=== PATIENT | male | born 1950 | race Caucasian/White ===

== ENCOUNTER 2016-10-17 18:39 | Observation (INO) | payer MEDICARE, BC ==
[2016-10-17 19:59] LABS: Hematocrit 40 % (42-52); Hemoglobin 13.4 g/dl (14.0-18.0); Mean Corpuscular HGB Conc 33 g/dl (31-36); Mean Corpuscular Hemoglobin 29 pg (27-31); Mean Corpuscular Volume 86 fL (80-94); Mean Platelet Volume 8 um3 (7.4-10.4); Red Blood Count 4.68 10^6/ul (4.0-5.4); Red Cell Distribution Width 15 % (10.5-15); White Blood Count 8.5 10^3/ul (3.5-10.8)
[2016-10-17 20:15] LABS: BUN/Creatinine Ratio 20.9 (8-20); Calcium 9.9 mg/dL (8.6-10.3); EGFR African American 81.6 (>60); EGFR Non-African American 63.4 (>60); Magnesium 1.7 mg/dL (1.9-2.7); Total Bilirubin 0.4 mg/dL (0.2-1.0); Troponin I 0.01 ng/mL (<0.04)
[2016-10-17 20:42] LABS: TSH (Thyroid Stimulating Horm) 0.89 mcIU/mL (0.34-5.60)
[2016-10-17] MEDS ORDERED: Magnesium Sulfate 2 GM IV* 2 GM/50 ML BAG IVPB ONE (21:33)
[2016-10-18] MEDS ORDERED: Heparin VIAL(*) 5000 UNITS/ML VIAL (FIVE THOUSAND) SUBCUT SCH (06:00)
--- NOTE | 2016-10-18 07:44 | HP ---
HISTORY AND PHYSICAL: DATE OF ADMISSION: 10/17/16 CHIEF COMPLAINT: "Feeling buzzy." HISTORY OF PRESENT ILLNESS: The patient is a 66-year-old gentleman who said he felt like his heart was slowing up recently. He had a pacemaker placed just a short time ago [facility] in [place] as he was having symptomatic bradycardia. He said, however, this weekend, he started having a feeling like he was feeling a little spacey and a little buzzy or tingly. He did not feel exactly he was going to passed out, but did feel strange. Then he would feel fine again. In the ED, this happened a couple of times and it appeared to be when his heart was slowing down then his pacemaker would kick in. He did not have any chest pain. He did not have any shortness of breath. PAST MEDICAL HISTORY: He has a past medical history significant for primary biliary cirrhosis, hyperlipidemia, and pseudogout. PAST SURGICAL HISTORY: Right shoulder surgery, right knee arthroscopy, and bilateral carpal tunnel release. CURRENT MEDICATIONS: As follows: 1. Welchol 1 tablet daily. 2. Ursodiol 500 mg twice daily. 3. "Miscellaneous natural products" 1 tablet daily. 4. Lactobacillus 1 capsule daily. 5. Glucosamine/chondroitin 1 capsule daily. 6. Folate/vitamin B12 1 tablet daily. 7. Vitamin B12 500 mcg daily. 8. Celexa 40 mg daily. 9. Calcium and magnesium 1 tablet daily. 10. Ascorbic acid 500 mg daily. 11. Amphetamine mixed salts (Adderall) 5 mg daily. FAMILY HISTORY: Mother of Alzheimer's. Father of old age. SOCIAL HISTORY: Quit tobacco 35 years ago. Quit marijuana 4 months ago. Social alcohol. No recreational drug use. 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 His , Myron Fowler, is his health care proxy. He has 2 children. REVIEW OF SYSTEMS: A 14-point review of systems is completed with the patient. All pertinent positives and negatives are in the history of present illness, otherwise it is negative. PHYSICAL EXAMINATION GENERAL: A pleasant gentleman, lying in bed, in no acute distress. VITAL SIGNS: Blood pressure 125/75, pulse ox 95%, respiratory rate 13 breaths per minute, heart rate 79 beats per minute, and temperature 97.9 degrees. HEENT: Normocephalic and atraumatic. Pupils are equal, round, and reactive to light. Moist mucous membranes. NECK: Supple. No JVD, bruits, palpable thyroid, or lymphadenopathy. CHEST: Clear to auscultation and percussion bilaterally. CARDIOVASCULAR: S1, S2 appreciated. Regular rate and rhythm. ABDOMEN: Positive bowel sounds in all 4 quadrants. Soft, nontender, and nondistended. EXTREMITIES: No cyanosis, clubbing, or edema; +2 peripheral pulses bilaterally. NEUROLOGIC: Alert and oriented x3. Moves all extremities. SKIN: No rashes or abnormalities. DIAGNOSTIC STUDIES/LABORATORY DATA: White count 8.5, hemoglobin 13.4, hematocrit 40, and platelets 370. Sodium 135, potassium 4.0, chloride 103, CO2 27, BUN 24, creatinine 1.15, and glucose 100. EKG shows normal sinus rhythm at 76 beats per minute, normal axis, and no acute ST- T wave changes. ASSESSMENT AND PLAN: 1. Symptomatic bradycardia: [employer] is coming tomorrow to interrogate his pacemaker. I think he may needed to have it set at a somewhat higher rate that he gets symptomatic even as he gets close to 60. Cardiology maybe necessary to consult. 2. FEN: Regular diet. 3. DVT prophylaxis: Heparin subcu. 4. Code status: The patient is a full code. TIME SPENT: Over 75 minutes was spent on this H and P; more than 40 minutes of which was spent in direct [id number] contact with the patient, evaluation, physical exam, counseling, and coordination of care. CC: Bacilio Valles MD* [id number]/CPS #: [id number] MTDD
[2016-10-18] MEDS ORDERED: [UNRECOGNIZED DRUG - OTHER] PO SCH (09:00)
[2016-10-18] MEDS ORDERED: Lactobacillus Acidophilu (GG)* 1 CAP CAP PO SCH (09:00)
[2016-10-18] MEDS ORDERED: Colesevelam(NF) 625 MG TAB PO SCH (09:00)
[2016-10-18] MEDS ORDERED: Citalopram TAB* 40 MG PO SCH (09:00)
[2016-10-18] MEDS ORDERED: CALCIUM MAGNESIUM ZINC PO SCH (09:00)
[2016-10-18] MEDS ORDERED: Amphetamine MIXED SALT TAB* 10 MG TAB PO SCH (09:00)
[2016-10-18] MEDS ORDERED: CELEXA 40 MG PO SCH (09:00)
[2016-10-18] MEDS ORDERED: Cyanocobalamin TAB* 500 MCG PO SCH (09:00)
[2016-10-18] MEDS ORDERED: [UNRECOGNIZED DRUG - OTHER] PO SCH (09:00)
[2016-10-18] MEDS ORDERED: GLUCOSAMINE CHONDROITIN PO SCH (09:00)
[2016-10-18] MEDS ORDERED: [UNRECOGNIZED DRUG - OTHER] PO SCH (09:00)
[2016-10-18] MEDS ORDERED: Ascorbic Acid TAB* 500 MG PO SCH (09:00)
[2016-10-18 12:17] VITALS: BP 124/76
--- NOTE | 2016-10-18 13:00 | DCNOTE ---
Subjective Date of Service: 10/18/16 Interval History: pt denies any other symptoms. Feels good. No SOB or CP. Ambulated around unit with no complaints and would like to go home. Objective Active Medications: Amphetamine/Dextroamphetamine (Adderall Tab*) 5 mg PO DAILY [facility] Last Admin: 10/18/16 09:16 Dose: Not Given Ascorbic Acid (Vitamin C Tab*) 500 mg PO DAILY [facility] Last Admin: 10/18/16 09:16 Dose: 500 mg Citalopram Hydrobromide (Celexa Tab*) 40 mg PO DAILY [facility] Last Admin: 10/18/16 09:16 Dose: 40 mg Colesevelam HCl (Welchol(Nf)) 625 mg PO DAILY [facility] Last Admin: 10/18/16 08:20 Dose: Not Given Cyanocobalamin (Vitamin B12 Tab*) 500 mcg PO DAILY [facility] Last Admin: 10/18/16 09:16 Dose: 500 mcg Heparin Sodium (Porcine) (Heparin Vial(*)) 5,000 units SUBCUT Q8HR [facility] Last Admin: 10/18/16 05:45 Dose: Not Given Lactobacillus Rhamnosus (Culturelle*) 1 cap PO DAILY [facility] Last Admin: 10/18/16 09:16 Dose: 1 cap Ursodiol 500 Mg 500 mg PO BID [facility] Last Admin: 10/18/16 08:21 Dose: Not Given Vital Signs 10/18/16 10/18/16 10/18/16 00:53 01:00 02:00 Temperature Pulse Rate 74 73 70 Respiratory 17 17 15 Rate Blood Pressure 100/66 108/64 102/65 (mmHg) O2 Sat by Pulse 95 94 95 Oximetry 10/18/16 10/18/16 10/18/16 03:20 03:39 07:39 Temperature 97.7 F 97.7 F 98.1 F Pulse Rate 71 71 74 Respiratory 16 16 16 Rate Blood Pressure 108/75 108/75 113/63 (mmHg) O2 Sat by Pulse 98 99 96 Oximetry 10/18/16 10/18/16 10/18/16 11:25 11:45 11:50 Temperature 98.0 F Pulse Rate 80 72 74 Respiratory 16 Rate Blood Pressure 111/65 112/67 127/73 (mmHg) O2 Sat by Pulse 97 97 Oximetry 10/18/16 11:55 Temperature Pulse Rate 84 Respiratory Rate Blood Pressure 124/76 (mmHg) O2 Sat by Pulse Oximetry Oxygen Devices in Use Now: None Appearance: healthy appearing 66 yo male in NAD. A+O x3 Eyes: No Scleral Icterus, PERRLA Ears/Nose/Mouth/Throat: NL Teeth, Lips, Gums, Clear Oropharnyx, Mucous Membranes Moist Neck: NL Appearance and Movements; NL JVP Respiratory: Symmetrical Chest Expansion and Respiratory Effort, Clear to Auscultation Cardiovascular: NL Sounds; No Murmurs; No JVD, RRR, No Edema Abdominal: NL Sounds; No Tenderness; No Distention Lymphatic: No Cervical Adenopathy Extremities: No Edema, No Clubbing, Cyanosis Skin: No Rash or Ulcers, No Nodules or Sclerosis Neurological: Alert and Oriented x 3, NL Sensation, NL Gait, NL Muscle Strength and Tone Lines/Tubes/Other Access: Clean, Dry and Intact Peripheral IV Nutrition: Taking PO's Result Diagrams: 10/17/16 19:47 10/17/16 19:47 Assess/Plan/Problems-Billing Assessment: The 66 yo male with a PMH of pacer placed in Jun 2016, biliary cirrhosis and HLD who presented with c/o of presyncope - Patient Problems (1) Pre-syncope Comment: - no further symptoms, unclear etiology. - pacer interrogated by [employer] rep Jose J. Pacer is functioning appropriately with no noted arrythmias, pt uses pacer < 1% of the time. - spoke with Dr. Pizarro who agrees the pt can go home. - Orthostatic negative - f/u with Dr. Hines at previously schedule appt next week. (2) Hypomagnesemia Comment: replaced on admission; encourage magnesium supplement (3) DVT prophylaxis Comment: HSQ Status and Disposition: OBV. Plan for DC to home
[2016-10-18 13:23] LABS: Urine Bilirubin Negative (Negative); Urine Glucose Negative (Negative); Urine Nitrite Negative (Negative)
--- NOTE | 2016-10-19 01:11 | DS ---
DISCHARGE SUMMARY: DATE OF ADMISSION: 10/17/16 DATE OF DISCHARGE: 10/18/16 PROVIDER: Nico Pool NP ATTENDING PHYSICIAN: Naima Clayton MD *(report dictated by Nico Pool NP) PRIMARY CARE PROVIDER: Bacilio Valles MD MANAGER FLORAL: Kirti Hines MD PRIMARY DIAGNOSES: 1. Presyncope, unclear etiology. 2. Hypomagnesemia. SECONDARY DIAGNOSES: 1. Primary biliary cirrhosis. 2. Hyperlipidemia. 3. Pseudogout. DISCHARGE MEDICATIONS: 1. Welchol 1 tab p.o. daily. 2. Ursodiol 500 mg p.o. b.i.d. 3. Lactobacillus 1 cap p.o. daily. 4. Glucosamine/chondroitin 500/400 1 cap p.o. daily. 5. Multivitamin 1 tablet p.o. daily. 6. Vitamin B12 500 mcg p.o. daily. 7. Celexa 40 mg p.o. daily. 8. Vitamin C 500 mg p.o. daily. 9. ADDERALL 5 mg p.o. daily (the patient was strongly encouraged to discontinue this medication and discuss with primary care provider). 10. Magnesium oxide 400 mg p.o. daily. HISTORY OF PRESENT ILLNESS AND HOSPITAL COURSE: Please see history and physical by Dr. Pedraza for full admission details, but in summary, this is a 66- year-old male who presented to the emergency department on 10/17/16 with "feeling buzzy." The patient reported he had a pacemaker placed in June at [facility] in [place] secondary to symptomatic bradycardia and syncope. He reports that since his pacemaker was placed, he has not had any symptoms of presyncope or syncope and has been feeling in good health. Yesterday in the morning, he reports that his initial concern was that he bent down and when he went to stand up, he felt lightheaded. That resolved and later on the day, he had 2 episodes where he felt "fuzzy in the head" and with a sensation of feeling like he may pass out and overall, he just felt strange. When he came to the emergency department for further evaluation as he thought it was very similar symptoms to what he was experiencing prior to his pacemaker placement. The patient was admitted to the hospitalist service and monitored on telemetry with a plan for pacemaker interrogation this morning. [employer] pacer community engagement representative interrogated the patient's pacemaker, which showed no arrhythmias as well as it is appropriately functioning and the wires are in place as well as noted that the patient's pacer is only in use less than 1% of the time. On our telemetry monitoring, there were no noted arrhythmias, but his heart rate stayed consistently in the 70s and 80s. Troponin was negative. No EKG changes. The patient denies any chest pain, shortness of breath, or any further symptoms throughout his hospitalization. I suspect this is possibly secondary to he took ADDERALL that morning which he does not do every day and states that he actually takes it quite infrequently, but he had a busy stressful day and took 5 mg of ADDERALL that morning. As well as he believes that he possibly did not drink enough water that day and so therefore, I think it is most likely a combination of these 2 things that probably brought on these symptoms. The patient is stable for discharge home. I did discuss the case with Dr. Pizarro, reliability technicians, who agrees that if the pacer had a normal interrogation, which it does, the patient can be discharged home and followed up with Dr. Hines as an outpatient. The patient was noted to have a magnesium of 1.7. He is given replacement on admission. The patient does report that he is supposed to take a magnesium supplement, but stopped doing so approximately a month ago. He was encouraged to start taking supplementation again and have his magnesium level checked within the next week or two. DISCHARGE PLAN: 1. Stable for discharge home. 2. Follow up with Dr. Valles within 1 week. 3. Follow up with Dr. Hines at previously scheduled appointment in approximately 10 days. 4. The patient was instructed to return to the emergency department with any further worsening or concerning symptoms as well as he was strongly encouraged not to take the ADDERALL and encouraged that he increase his fluid intake. TIME SPENT: Approximately 60 minutes was spent in the discharge. NICO POOL NP CC: Dr. Valles; Dr. Hines* [id number]/[facility] #: [id number] [facility]
--- NOTE | 2016-10-23 09:14 | ED ---
Robert Mendoza Karl, scribed for Yee Benjamin MD on 10/17/16 at 2017 . Palpitations / Dysrhythmia - HPI Summary HPI Summary: 66 y/o male presents to the ED c/o heart palpitations. Pt reported that he has been having intermittent episodes of feeling like his HR was either fast or abnormally slow. Pt has had 3 episodes today with the most recent being shortly before coming to the ED. Pt denied CP and SOB. Pt has a pacemaker because of symptomatic bradycardia. - History of Current Complaint Chief Complaint: EDDysrhythmPalp Time Seen by Provider: 10/17/16 19:14 Hx Obtained From: Patient Onset/Duration: Gradual Onset, Lasting Hours, Still Present Timing: Intermittent Episodes Lasting: Severity Initially: Mild Severity Currently: Mild Character: Slow Aggravating: Nothing Alleviating: Nothing - Allergy/Home Medications Allergies/Adverse Reactions: Allergies Allergy/AdvReac Type Severity Reaction Status Date / Time bees Allergy Severe anaphylaxis Uncoded 06/08/16 16:15 Home Medications: Home Medications Amphetamine MIXED SALTS TAB* [Adderall TAB*] 5 mg PO DAILY 10/17/16 [History Confirmed 10/17/16] Ascorbic Acid TAB* [Vitamin C TAB*] 500 mg PO DAILY 10/17/16 [History Confirmed 10/17/16] Quxrghs-Cyunstlyr-Ybzq [Calcium & Magnesium + Zin 334-134-5 mg] 1 tab PO DAILY 10/17/16 [History Confirmed 10/17/16] Cyanocobalamin TAB* [Vitamin B12 TAB*] 500 mcg PO DAILY 10/17/16 [History Confirmed 10/17/16] Folate-Vitamin G27-Hgxrmwqbz F [Intrinsi B12/Folate 800-500-20 Mcg-Mcg-mg] 1 tab PO DAILY 10/17/16 [History Confirmed 10/17/16] Glucosamine-Chondroitin [Glucosamine & Chondroitin 500-400 mg] 1 cap PO DAILY [History Confirmed 10/17/16] Misc Natural Products [Curcumax Pro] 1 tab PO DAILY 10/17/16 [History Confirmed 10/17/16] PMH/Surg Hx/FS Hx/Imm Hx Endocrine/Hematology History: Denies: Hx Diabetes, Hx Systemic Lupus Erythematosus, Hx Thyroid Disease Cardiovascular History: Denies: Hx Congestive Heart Failure, Hx Hypertension, Hx Pacemaker/ICD Respiratory History: Denies: Hx Asthma, Hx Chronic Obstructive Pulmonary Disease (COPD) GI History: Denies: Hx Ulcer History: Denies: Hx Dialysis, Hx Renal Disease - 1 kidney Musculoskeletal History: Denies: Hx Rheumatoid Arthritis, Hx Osteoporosis Sensory History: Denies: Hx Hearing Aid Psychiatric History: Denies: Hx Panic Disorder - Cancer History Hx Chemotherapy: No - Surgical History Surgery Procedure, Year, and Place: rt shoulder. lt knee. bilat wrist for carpal tunnel. kidney removal Infectious Disease History: No Infectious Disease History: Denies: Hx Hepatitis, Hx Human Immunodeficiency Virus (HIV), Traveled Outside the [place] in Last 30 Days - Family History Known Family History: Positive: Other - gout Negative: Hypertension - Social History Alcohol Use: Weekly Alcohol Amount: 4-5 cocktails/week Substance Use Type: Reports: Marijuana - has stopped Substance Use Comment - Amount & Last Used: weekly Smoking Status (MU): Former Smoker - quit 30 years ago Have You Smoked in the Last Year: No Review of Systems Constitutional: Negative Eyes: Negative ENT: Negative Positive: Palpitations - percieved slow HR Respiratory: Negative Gastrointestinal: Negative Genitourinary: Negative Musculoskeletal: Negative Skin: Negative Neurological: Negative Psychological: Normal All Other Systems Reviewed And Are Negative: Yes Physical Exam Triage Information Reviewed: Yes Vital Signs On Initial Exam: Initial Vitals Temp Pulse Resp BP Pulse Ox 97.9 F 86 20 112/72 98 10/17/16 18:42 10/17/16 18:42 10/17/16 18:42 10/17/16 18:42 10/17/16 18:42 Vital Signs Reviewed: Yes Appearance: Positive: Well-Appearing, No Pain Distress Skin: Positive: Warm, Skin Color Reflects Adequate Perfusion, Dry Head/Face: Positive: Normal Head/Face Inspection Eyes: Positive: EOMI, ANDRAE ENT: Positive: Pharynx normal, TMs normal Neck: Positive: Supple, Nontender Respiratory/Lung Sounds: Positive: Clear to Auscultation, Breath Sounds Present. Negative: Rales, Rhonchi, Wheezes Cardiovascular: Positive: RRR. Negative: Murmur, Rub Abdomen Description: Positive: Nontender, Soft. Negative: Distended, Guarding Bowel Sounds: Positive: Present Musculoskeletal: Positive: Strength/ROM Intact. Negative: Edema Left, Edema Right Neurological: Positive: Sensory/Motor Intact, Alert, Oriented to Person Place, Time, CN Intact II-III Psychiatric: Positive: Affect/Mood Appropriate Diagnostics - Vital Signs Vital Signs Temp Pulse Resp BP Pulse Ox 10/17/16 18:42 97.9 F 86 20 112/72 98 - Laboratory Lab Results: Lab Results 10/17/16 10/17/16 10/17/16 Range/Units 19:47 19:47 19:47 WBC 8.5 (3.5-10.8) 10^3/ul RBC 4.68 (4.0-5.4) 10^6/ul Hgb 13.4 L (14.0-18.0) g/dl Hct 40 L (42-52) % MCV 86 (80-94) fL MCH 29 (27-31) pg MCHC 33 (31-36) g/dl RDW 15 (10.5-15) % Plt Count 370 (150-450) 10^3/ul MPV 8 (7.4-10.4) um3 Neut % (Auto) 74.6 (38-83) % Lymph % (Auto) 18.1 L (25-47) % [place] % (Auto) 6.1 (1-9) % Eos % (Auto) 0.3 (0-6) % Baso % (Auto) 0.9 (0-2) % Absolute Neuts (auto) 6.3 (1.5-7.7) 10^3/ul Absolute Lymphs (auto) 1.5 (1.0-4.8) 10^3/ul Absolute Monos (auto) 0.5 (0-0.8) 10^3/ul Absolute Eos (auto) 0 (0-0.6) 10^3/ul Absolute Basos (auto) 0.1 (0-0.2) 10^3/ul Absolute Nucleated RBC 0 10^3/ul Nucleated RBC % 0 Sodium 135 (133-145) mmol/L Potassium 4.0 (3.5-5.0) mmol/L Chloride 103 (101-111) mmol/L Carbon Dioxide 27 (22-32) mmol/L Anion Gap 5 (2-11) mmol/L BUN 24 (6-24) mg/dL Creatinine 1.15 (0.67-1.17) mg/dL Est GFR ( Amer) 81.6 (>60) Est GFR (Non-Af Amer) 63.4 (>60) BUN/Creatinine Ratio 20.9 H (8-20) Glucose 100 (70-100) mg/dL Lactic Acid 0.9 (0.5-2.0) mmol/L Calcium 9.9 (8.6-10.3) mg/dL Magnesium 1.7 L (1.9-2.7) mg/dL Total Bilirubin 0.40 (0.2-1.0) mg/dL AST 25 (13-39) U/L ALT 31 (7-52) U/L Alkaline Phosphatase 279 H (34-104) U/L Troponin I 0.01 (<0.04) ng/mL Total Protein 7.0 (6.4-8.9) g/dL Albumin 4.0 (3.2-5.2) g/dL Globulin 3.0 (2-4) g/dL Albumin/Globulin Ratio 1.3 (1-3) TSH 0.89 (0.34-5.60) mcIU/mL Result Diagrams: 10/17/16 19:47 10/17/16 19:47 Lab Statement: Any lab studies that have been ordered have been reviewed, and results considered in the medical decision making process. - EKG 18:53 EKG Interpretation: NSR at 76 bpm, minimal ST elevation, No STEMI Course/Dx - Course Course Of Treatment: pt decided to stay after episode of symptoms while in ED where it looked from [facility] as though the pacemaker had kicked in - Diagnoses Provider Diagnoses: Palpitations - Physician Notifications Discussed Care Of Patient With: Dr. Pedraza (Hospitalist) at 23:05 who agreed to admit the pt for observation. Discharge - Discharge Plan Condition: Stable Disposition: ADMITTED TO [facility] documentation as recorded by the Robert sullivan Karl accurately reflects the service I personally performed and the decisions made by me, Yee Benjamin MD.
== END 2016-10-18 14:25 | disposition home or self-care (01) ==
LOC: ED 18:39 → MEDTELE 10-18 00:20
PROVIDERS: ADMIT Internal Medicine; ATTEND Internal Medicine
DX: R55 Syncope and collapse (principal); R00.1 Bradycardia, unspecified; E83.42 Hypomagnesemia; K74.3 Primary biliary cirrhosis; E78.5 Hyperlipidemia, unspecified; M11.20 Other chondrocalcinosis, unspecified site; Z79.899 Other long term (current) drug therapy; Z87.891 Personal history of nicotine dependence
CPT/HCPCS: 36415; 80053; 81003; 83605; 83735; 84443; 84484; 85025; 93005; 96365; 99284; A9270-GY; G0378; J1644; J3475

== ENCOUNTER 2017-02-10 07:08 | Day surgery (SDC) | payer MEDICARE, BC ==
--- NOTE | 2017-01-29 09:25 | HP ---
PREOPERATIVE HISTORY AND PHYSICAL EXAM: DATE OF SURGERY/ADMISSION: 02/10/17 AGE: 66. ATTENDING SURGEON: Natalia Bo MD. PROCEDURE: Right wrist de Quervain's release. DATE OF OFFICE VISIT/ENCOUNTER: 01/28/17 PRIMARY CARE PHYSICIAN: Dr. Valles. PLANT NURSERY WORKER: Dr. Hines. CHIEF COMPLAINT: Right wrist pain. HISTORY OF PRESENT ILLNESS: This is a 66-year-old male who complains of pain in his right wrist that has been ongoing for several months now. He denies any known injury, but believes it is from repetitive use with his mouse. He has been followed by [facility] in the past and had a cortisone injection which was not helpful in relieving his pain. Rest generally does help his pain ; however, anytime he starts to use his right wrist again, the pain returns and it has been increasingly getting worse. The patient has a history of syncope and had a pacemaker placed 7 months ago. He is followed regularly by his warehouse selector, Dr. Kirti Hines. He also has a history of pseudogout for which he takes colchicine. His current pain is on the radial aspect of the wrist. He denies any numbness or tingling. After evaluation by and discussion with Dr. Bo, the patient has agreed to proceed with surgical intervention at this time in the form of a right wrist de Quervain's release. PAST MEDICAL HISTORY: 1. History of syncopal episodes. 2. Hypercholesterolemia. 3. Pseudogout. 4. Primary biliary cirrhosis. 5. Liver disease. PAST SURGICAL HISTORY: 1. Pacemaker placement approximately 7 months ago. 2. Left shoulder surgery. 3. Left knee surgery. 4. Bilateral carpal tunnel releases. MEDICATIONS: 1. Back and Body Extra Strength 500/32.5 mg p.r.n. 2. Citalopram hydrobromide 40 mg daily. 3. Colchicine 0.6 mg twice a day p.r.n. gout. 4. EpiPen, use as directed. 5. Fish oil concentrate 1000 mg daily. 6. Magnesium 400 mg daily. 7. Multivitamin complete daily. 8. Ursodiol 500 mg daily. 9. Welchol 625 mg 2 tabs daily. ALLERGIES: No known drug allergies. The patient is allergic to BEE STINGS. FAMILY MEDICAL HISTORY: Cancer and gout. 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 He is a former smoker. He quit approximately 35 years ago. Prior to that, he smoked a pack per day for approximately 12 years. He has a history of recreational drug use, marijuana, but is not currently smoking. Does admit to alcohol intake on occasions. REVIEW OF SYSTEMS: General: Negative for fevers, chills, or night sweats. No known anesthesia problems. HEENT: Negative for headache, lightheadedness, or recent syncopal episodes. Integumentary: Negative for abrasions, lesions, or open wounds. Cardiothoracic: Positive for hypertension. Negative for chest pain, palpitations, or edema. Pulmonary: Negative for shortness of breath with exertion, chronic cough, or COPD. GI: Negative for nausea, vomiting, diarrhea, constipation, or GERD. : Negative for nocturia, urinary frequency , urgency, history of UTIs, or kidney problems. Musculoskeletal: Positive for current complaint. Otherwise negative. Also positive for pseudogout. Neurological: Negative for paresthesias, numbness, history of seizure, stroke, or epilepsy. Endocrine: Negative for diabetes or thyroid issues. Hematologic: Negative for easy bruising, anemia, excessive bleeding, or history of DVT. Infectious Disease: Negative for history of MRSA, hepatitis C, or HIV. PHYSICAL EXAMINATION GENERAL: Well-developed, well-nourished 66-year-old male in no acute distress. VITAL SIGNS: Height 5 feet 3 inches, weight 147 pounds, pulse rate 76, blood pressure 100/70. HEENT: Normocephalic, atraumatic. Pupils are equal, round, reactive to light and accommodation. Extraocular movements are intact. NECK: Supple. No palpable lymph nodes. Throat is clear. PULMONARY: Lungs are clear to auscultation bilaterally. No wheezes, rales, or rhonchi. CARDIOVASCULAR: Regular rate and rhythm. S1, S2. No murmurs, rubs, or gallops. No edema. ABDOMEN: Positive bowel sounds. Soft, nontender. NEUROLOGICAL: Alert and oriented x3. Cranial nerves II through XII are intact. Sensation is intact to light touch. PERIPHERAL VASCULAR: 2+ radial and ulnar pulses. Negative Josh test. MUSCULOSKELETAL: On exam of his right wrist, he has tenderness to palpation at the first dorsal compartment and a positive Natalie's test. He has good flexion and extension of the wrist, but limited ulnar and radial deviation. He has full flexion and extension of his fingers and neurovascular function is intact. IMAGING STUDIES: X-ray and MRI of the right wrist show chondrocalcinosis of the radiocarpal joint and de Quervain's tenosynovitis. IMPRESSION: Right wrist de Quervain's tenosynovitis. PLAN: The patient is scheduled to undergo a right wrist de Quervain's release with Dr. Bo on 02/10/17. He will return to the office 10 to 14 days postop for followup and suture removal. A prescription for Ultracet was e-scribed to the patient's pharmacy for postoperative pain management. The patient recently saw his warehouse selector, Dr. Hines, on 01/27/17. She did not recommend any changes in his medications or addition of any cardiac medications. TOM CHA [id number]/[facility] #: [id number] DEJA
[2017-02-10] MEDS ORDERED: Lidocaine 1% INJ* 10 MG/ML 30 ML SDV ONE (07:24)
[2017-02-10] MEDS ORDERED: Buffered Lidocaine 1% SYRIN* 5 ML/SYR SYRINGE ONE (07:41)
[2017-02-10] MEDS ORDERED: fentaNYL* 50 MCG/ML 2 ML VIAL (100 MCG VIAL) ONE (08:54)
[2017-02-10] MEDS ORDERED: Midazolam* 1 MG/ML 2 ML VIAL (2 MG) ONE (08:54)
[2017-02-10 09:28] VITALS: BP 107/65
--- NOTE | 2017-02-11 02:25 | OP ---
OPERATIVE NOTE: DATE OF OPERATION: 02/10/17 - [facility] DATE OF : 48 SURGEON: Natalia Bo MD. UROGYNAECOLOGIST: TOM Marmolejo. ANESTHESIOLOGIST: Filiberto Veronica MD. ANESTHESIA: Local MAC. PRE-OP DIAGNOSIS: Right de Quervain tenosynovitis. POST-OP DIAGNOSIS: Right de Quervain tenosynovitis. PROCEDURE: Right de Quervain release. ESTIMATED BLOOD LOSS: Zero. TOURNIQUET TIME: About 10 minutes. INDICATIONS FOR PROCEDURE: Javier is a 66-year-old man with painful tendinitis on the radial aspect of the right wrist. He has a positive Natalie test. He has failed conservative treatment with cortisone injection , presents for de Quervain release on the right. DESCRIPTION OF PROCEDURE: The patient was brought to the operating room, was given a sedation anesthetic and a local infiltration with 10 cc of 1% plain lidocaine on the radial aspect of the right wrist. The skin of his right hand and forearm was prepped and draped in the usual sterile fashion. The hand and forearm were exsanguinated and the tourniquet elevated to 250 mmHg. A longitudinal incision was made centered at the tip of the radial styloid. We dissected bluntly through the subcutaneous tissue. Branches of the radial sensory nerve were located and retracted by the surgical processor, Xochilt Gutierrez. The first dorsal compartment was then incised longitudinally completely releasing the two very large slips of the APL tendon. The EPB tendon was in a separate compartment and was completely released as well. There was tenosynovitis surrounding the tendons and this was debrided. The wound was irrigated and the skin edges reapproximated with 4-0 nylon sutures. The wound was dressed with Xeroform, 4x4 Webril, and an Abundio wrap. The patient tolerated the procedure well and was brought to the recovery room in good condition. [id number]/[facility] #: [id number] DEJA
== END 2017-02-10 09:41 | disposition home or self-care (01) ==
LOC: OREAST 07:08
PROVIDERS: ATTEND Orthopaedic Surgery
DX: M65.4 Radial styloid tenosynovitis [de Quervain] (principal); Z95.0 Presence of cardiac pacemaker; M19.90 Unspecified osteoarthritis, unspecified site
CPT/HCPCS: J2001; J2250; J3010

== ENCOUNTER 2019-01-23 18:18 | Emergency (ER) | payer MEDICARE, OTHER ==
--- NOTE | 2019-01-23 18:24 | UC ---
Dental HPI - HPI Summary HPI Summary: Patient is a 68 year old gentleman, who presents today to the urgent care with left jaw pain for past 3 weeks. denies any trauma , denies any pain in the tooth but feels like it's deep into the jaw. Intermittent. Keeps him awake at night. Progressively it's been getting worse. Doesn't hurt to swallow food, able to bite and chew food . he has been having the dental work done on the right side and his dentist is Anibal Rohtman. Denies any fever, chills, cough chest pain or shortness of breath . No diaphoresis. Denies any abdominal pain , nausea or vomiting , diarrhea or constipation. - History of Current Complaint Stated Complaint: JAW PAIN Time Seen by Provider: 01/23/19 18:21 Hx Obtained From: Patient - Allergies/Home Medications Allergies/Adverse Reactions: Allergies Allergy/AdvReac Type Severity Reaction Status Date / Time bees Allergy Severe anaphylaxis Uncoded 01/23/19 18:29 Home Medications: Home Medications Ezetimibe TAB* [Zetia TAB*] 10 mg PO DAILY 01/23/19 [History Confirmed 01/23/19] Lacosamide TAB* [Vimpat TAB*] 300 mg PO BID 01/23/19 [History Confirmed 01/23/19 ] Tadalafil (Nf) [Cialis (NF)] 5 mg PO DAILY PRN 01/23/19 [History Confirmed 01/23] PMH/Surg Hx/FS Hx/Imm Hx - Surgical History Surgical History: Yes Surgery Procedure, Year, and Place: 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 lt knee. bilat wrist for carpal tunnel - Family History Known Family History: Positive: Other - gout Negative: Hypertension - Social History Alcohol Use: Occasionally Alcohol Amount: 2 cocktails/week Substance Use Type: Marijuana Substance Use Comment - Amount & Last Used: occasionally Smoking Status (MU): Former Smoker Amount Used/How Often: 1 PPD X 10-12 YEARS Have You Smoked in the Last Year: No When Did the Patient Quit Smoking/Using Tobacco: 40 YEARS AGO Review of Systems All Other Systems Reviewed And Are Negative: Yes Constitutional: Positive: Negative Skin: Positive: Negative Eyes: Positive: Negative ENT: Positive: Dental Pain Respiratory: Positive: Negative Cardiovascular: Positive: Negative Gastrointestinal: Positive: Negative Genitourinary: Positive: Negative Motor: Positive: Negative Neurovascular: Positive: Negative Musculoskeletal: Positive: Negative Neurological: Positive: Negative Psychological: Positive: Negative Is Patient Immunocompromised?: No Physical Exam - Summary Physical Exam Summary: Physical Exam: Const: Appears well. No signs of apparent distress present. Alert and oriented x 3. Musculo: Walks with a normal gait. Head/Face: Atraumatic, normocephalic on inspection. Eyes: EOMI and PERRLA in both eyes. Conjunctivae clear. No discharge noted ENT: Hearing normal, TM normal appearing bilaterally, non bulging , non erythematous . No tenderness on palpation / manipulation of Tragus. No mastoid tenderness. No tenderness to palpation on maxillary and frontal sinus. there is no tenderness to palpation at the TMJ. No tenderness to palpation at the masseters. There is tenderness to palpation deep into the jaw in the submandibular areabut no significant bony tenderness noted at the jaw. he has metal caqp to his premolars and molars here is no signs of gingivitis or abscess externally, no tenderness to palpation on any of the tooth No pharyngeal erythema or exudates . Uvula is midline. No cervical or submandibular lymphadenopathy noted. Respiratory: Respirations are unlabored. Lungs clear to auscultation bilaterally, no wheezing , rhonchi or rales noted . CVS: Regular rate and Rhythm, S1S2 normal , no murmurs identified. Extremities: Peripheral circulation is grossly normal. Pulses 2+ Abdomen : Soft non tender , nondistended , Bowel sounds present . No guarding , rebound tenderness or rigidity noted. Skin: No lesions or rash located on the upper extremities or on the lower extremities. Neuro: Cranial nerves II to XII intact, motor and sensory intact. DTR Intact bilaterally. Mood is normal. Affect is normal. jah Bello saw a video year but denies dysuria all planes Triage Information Reviewed: Yes Vital Signs Reviewed: Yes Dental Complaint Course/Dx - Course Course Of Treatment: During the visit today, we obtained CT scan of the left jaw to rule out any osteomyelitis patient does not want to wait until it's read. Plan to start him on an antibiotic for possible abscess. he was given 1 dose of Augmentin in the clinic today. Plan to call him with the CT results at home. Patient expressed understanding . - Differential Dx/Diagnosis Provider Diagnosis: Pain in lower jaw Discharge - Sign-Out/Discharge Documenting (check all that apply): Patient Departure All imaging exams completed and their final reports reviewed: No - Discharge Plan Condition: Stable Disposition: HOME Prescriptions: Amoxicillin/Clavulanate TAB* [Augmentin TAB 875*] 875 mg PO BID 10 Days #19 tab Patient Education Materials: Toothache (ED) Referrals: Bacilio Valles MD [Primary Care Provider] - 1 Week Additional Instructions: Please start taking the medication as prescribed to the pharmacy . we will call you with the results of the CT scan when available Pain control as needed Follow up with your Dentist in 1-2 days. Patients blood pressure slightly high(prehypertensive) in Urgent care today , plan follow up with PCP within a month Return to Urgent care / ER if symptoms get worse. - Billing Disposition and Condition Condition: STABLE Disposition: Home
[2019-01-23 18:29] VITALS: BP 124/87
[2019-01-23] MEDS ORDERED: Ketorolac INJ* 30 MG/ML 1 ML VIAL IM ONE (19:03)
[2019-01-23] MEDS ORDERED: Amoxicillin/Clavulanate TAB* 875 MG PO ONE (19:42)
--- NOTE | 2019-01-24 14:01 | UC ---
- Progress Note Progress Note: Radiologist reading of CT maxillofacial comes back from January 23, 2019. Patient had not waited for the results. Nursing spoke to patient and sent the patient the results. Course/Dx - Diagnoses Provider Diagnoses: Pain in lower jaw Discharge - Sign-Out/Discharge Documenting (check all that apply): Patient Departure All imaging exams completed and their final reports reviewed: Yes - Discharge Plan Condition: Stable Disposition: HOME Prescriptions: Amoxicillin/Clavulanate TAB* [Augmentin TAB 875*] 875 mg PO BID 10 Days #19 tab Patient Education Materials: Toothache (ED) Referrals: Bacilio Valles MD [Primary Care Provider] - 1 Week Additional Instructions: Please start taking the medication as prescribed to the pharmacy . we will call you with the results of the CT scan when available Pain control as needed Follow up with your Dentist in 1-2 days. Patients blood pressure slightly high(prehypertensive) in Urgent care today , plan follow up with PCP within a month Return to Urgent care / ER if symptoms get worse. - Billing Disposition and Condition Condition: STABLE Disposition: Home
== END 2019-01-23 20:00 | disposition home or self-care (01) ==
LOC: UCEAST 18:18
DX: R68.84 Jaw pain (principal); J32.0 Chronic maxillary sinusitis; J32.3 Chronic sphenoidal sinusitis; Z95.0 Presence of cardiac pacemaker; Z91.030 Bee allergy status; Z87.891 Personal history of nicotine dependence
CPT/HCPCS: 70486; 96372; 99212; A9270-GY; G0463; J1885

== ENCOUNTER 2019-04-16 18:06 | Emergency (ER) | payer MEDICARE, OTHER ==
[2019-04-16 18:13] VITALS: BP 104/69
--- NOTE | 2019-04-16 18:16 | UC ---
Skin Complaint HPI - HPI Summary HPI Summary: 69 year old male with complaint of yellow jacket sting yesterday, presents with right arm swelling, redness, itching. Took a benadryl last night, decreased itching. H/O multiple stings, ? 69? in past with severe reaction afterwards. Presents with . 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 - Onset/Duration: Sudden Onset, Lasting Days - x 24 hours Skin Exposure Onset/Duration: Days Ago Timing: Constant Location: Discrete - right arm Associated Signs & Symptoms: Positive: Rash Related History: Insect Bite/Sting - Allergy/Home Medications Allergies/Adverse Reactions: Allergies Allergy/AdvReac Type Severity Reaction Status Date / Time bees Allergy Severe anaphylaxis Uncoded 04/16/19 18:13 Home Medications: Home Medications EPINEPHrine [Epipen] 0.3 mg IJ 04/16/19 [History] PMH/Surg Hx/FS Hx/Imm Hx Previously Healthy: Yes - Surgical History Surgical History: Yes Surgery Procedure, Year, and Place: 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 lt knee. bilat wrist for carpal tunnel - Family History Known Family History: Positive: Other - gout, Non-Contributory Negative: Hypertension - Social History Alcohol Use: Occasionally Alcohol Amount: 2 cocktails/week Substance Use Type: Marijuana Substance Use Comment - Amount & Last Used: occasionally Smoking Status (MU): Former Smoker Amount Used/How Often: 1 PPD X 10-12 YEARS Have You Smoked in the Last Year: No When Did the Patient Quit Smoking/Using Tobacco: 40 YEARS AGO Review of Systems All Other Systems Reviewed And Are Negative: Yes Constitutional: Positive: Negative Skin: Positive: Rash Musculoskeletal: Positive: Decreased ROM, Edema Is Patient Immunocompromised?: No Physical Exam Triage Information Reviewed: Yes Appearance: Well-Appearing, No Pain Distress, Well-Nourished Vital Signs Reviewed: Yes Eyes: Positive: Conjunctiva Clear ENT: Positive: Pharynx normal, Uvula midline. Negative: Pharyngeal erythema, Tonsillar swelling, Tonsillar exudate Neck: Positive: Supple, Nontender Respiratory: Positive: Chest non-tender, Lungs clear, Normal breath sounds, No respiratory distress, No accessory muscle use. Negative: Respiratory distress, Decreased breath sounds, Accessory muscle use, Crackles, Rhonchi, Stridor, Wheezing, Expiration, Inspiration Cardiovascular: Positive: RRR, No Murmur Musculoskeletal Exam: Normal Neurological Exam: Normal Psychological Exam: Normal Skin: Positive: Rashes, Other - edema over right forearm extending from wrist folds to mid humerus region, no signs of penetration/ FB, full ROM of wrist, fingers with intact strength against resistence. Decreased ROM of right elbow due to swelling with full flexion, missing last 20 degrees. Course/Dx - Course Course Of Treatment: - Increase fluid intake - Keep Epi-pen close at hand - Go to ER or call ambulance with shortness of breath, difficulty swallowing, neck swelling, decreased breathing. - Medrol dose packet- take as directed. - COntinue hydrocortisone cream for itching. monitor arm for signs of infection. - Differential Diagnoses - Skin Complaint Differential Diagnoses: Anaphylaxis, Angioedema, Cellulitis, Lymphangitis, Figueroa-Vasile Syndrome, Systemic Illness - Diagnoses Provider Diagnosis: Insect sting allergy, current reaction, Angioedema Discharge - Sign-Out/Discharge Documenting (check all that apply): Patient Departure All imaging exams completed and their final reports reviewed: No Studies - Discharge Plan Condition: Good Disposition: HOME Prescriptions: methylPREDNISolone [Medrol Dosepak 4 MG*] 1 deniz PO .SEE DENIZ INSTRUCTION #1 packet Patient Education Materials: Insect Bite or Sting (ED), General Allergic Reaction (ED) Referrals: Bacilio Valles MD [Primary Care Provider] - (Thursday if no improvement ) Additional Instructions: - Increase fluid intake - Keep Epi-pen close at hand - Go to ER or call ambulance with shortness of breath, difficulty swallowing, neck swelling, decreased breathing. - Medrol dose packet- take as directed. - COntinue hydrocortisone cream for itching. monitor arm for signs of infection. - Billing Disposition and Condition Condition: GOOD Disposition: Home - Attestation Statements Provider Attestation: I was available for consult. This patient was seen by the ISLEA. The patient was not presented to, seen by, or examined by me. -Johan
[2019-04-16] MEDS ORDERED: predniSONE TAB* 20 MG PO ONE (19:31)
== END 2019-04-16 18:48 | disposition home or self-care (01) ==
LOC: UCEAST 18:06
DX: T63.481A Toxic effect of venom of other arthropod, accidental (unintentional), initial encounter (principal); T78.3XXA Angioneurotic edema, initial encounter; Y92.9 Unspecified place or not applicable
CPT/HCPCS: 99212; G0463; J7512